=== PATIENT | female | born 1995 | race Caucasian/White ===

== ENCOUNTER 2017-06-21 11:11 | Emergency (ER) | payer OTHER ==
[2017-06-21 12:45] LABS: BASOPHIL % 0.6 % (0-2); PLATELET COUNT 240 x10^3mcL (130-400); RED CELL DISTRIBUTION WIDTH 12.6 % (11.5-14.5)
[2017-06-21 15:30] VITALS: BP 121/78
== END 2017-06-21 15:30 | disposition home or self-care (01) ==
LOC: ED 11:11
PROVIDERS: Emergency Medicine
DX: J02.9 Acute pharyngitis, unspecified (principal); R51 Headache; M79.1 Myalgia
CPT/HCPCS: J0561; J0696; J1100; J1885

== ENCOUNTER 2017-09-21 19:17 | Emergency (ER) | payer OTHER ==
[2017-09-21 21:09] LABS: microscopic required? NO
[2017-09-21 21:28] LABS: urine erythrocyte NEGATIVE (NEGATIVE)
[2017-09-22 01:30] VITALS: BP 115/73
== END 2017-09-22 01:30 | disposition home or self-care (01) ==
LOC: ED 19:17
PROVIDERS: Emergency Medicine Emergency Medical Services
DX: N83.201 Unspecified ovarian cyst, right side (principal)

== ENCOUNTER 2018-11-21 19:19 | Emergency (ER) | payer OTHER ==
[~2018-11-21] VITALS: Ht 157.5 cm; Wt 57.6 kg
[2018-11-21 20:07] VITALS: Ht 157.5 cm; Wt 57.6 kg
[2018-11-21 21:48] LABS: microscopic required? NO
[2018-11-21 22:05] LABS: urine erythrocyte NEGATIVE (NEGATIVE)
[2018-11-21 22:39] LABS: BASOPHIL % 0.5 % (0-2); PLATELET COUNT 268 x10^3mcL (130-400); RED CELL DISTRIBUTION WIDTH 12.6 % (11.5-14.5)
[2018-11-21 22:54] LABS: CALCIUM 8.5 mg/dL (8.5-10.1); CARBON DIOXIDE 29.4 mmol/L (21-32); CHLORIDE SERUM 102 mmol/L (98-107); CREATININE SERUM 0.6 mg/dL (0.6-1.0); GFR1 > 60 mL/min; GLUCOSE SERUM 81 mg/dL (74-106); POTASSIUM SERUM 3.4 mmol/L (3.5-5.1); SODIUM SERUM 136 mmol/L (136-145)
[2018-11-21 22:59] LABS: ALBUMIN 3.5 g/dL (3.4-5.0); ALKALINE PHOSPHATASE 53 U/L (46-116); ALT/SGPT 18 U/L (14-59); AMYLASE 49 U/L (25-115); AST/SGOT 15 U/L (15-37); BILIRUBIN TOTAL 0.21 mg/dL (0.20-1.00); LIPASE 93 IU/L (73-393); TOTAL PROTEIN, SERUM 7.5 g/dL (6.4-8.2)
[2018-11-21 23:32] VITALS: BP 114/73
== END 2018-11-21 23:32 | disposition home or self-care (01) ==
LOC: ED 19:19
PROVIDERS: Emergency Medicine
DX: N83.9 Noninflammatory disorder of ovary, fallopian tube and broad ligament, unspecified (principal); F17.210 Nicotine dependence, cigarettes, uncomplicated
CPT/HCPCS: 36415; 99406

== ENCOUNTER 2018-12-28 15:18 | Emergency (ER) | payer OTHER ==
[~2018-12-28] VITALS: Ht 154.9 cm; Wt 56.2 kg
[2018-12-28 15:27] VITALS: Ht 154.9 cm; Wt 56.2 kg
[2018-12-28 20:23] VITALS: BP 124/83
== END 2018-12-28 20:23 | disposition home or self-care (01) ==
LOC: ED 15:18
DX: S13.4XXA Sprain of ligaments of cervical spine, initial encounter (principal); S06.0X9A Concussion with loss of consciousness of unspecified duration, initial encounter; V49.49XA Driver injured in collision with other motor vehicles in traffic accident, initial encounter; Y93.I9 Activity, other involving external motion; Y92.413 State road as the place of occurrence of the external cause; Y99.8 Other external cause status

== ENCOUNTER 2019-05-13 12:43 | Emergency (ER) | payer OTHER ==
[~2019-05-13] VITALS: Ht 157.5 cm; Wt 53.5 kg
[2019-05-13 12:58] VITALS: Ht 157.5 cm; Wt 53.5 kg
[2019-05-13 15:19] VITALS: BP 125/66
== END 2019-05-13 15:29 | disposition home or self-care (01) ==
LOC: ED 12:43
DX: R10.2 Pelvic and perineal pain (principal); Z87.42 Personal history of other diseases of the female genital tract
CPT/HCPCS: J1885

== ENCOUNTER 2019-08-25 17:20 | Emergency (ER) | payer OTHER ==
[~2019-08-25] VITALS: Ht 157.5 cm; Wt 54.0 kg
[2019-08-25 17:32] VITALS: Ht 157.5 cm; Wt 54.0 kg
[2019-08-25 19:25] VITALS: BP 124/85
== END 2019-08-25 19:25 | disposition home or self-care (01) ==
LOC: ED 17:20
DX: Z32.02 Encounter for pregnancy test, result negative (principal); Z87.42 Personal history of other diseases of the female genital tract
CPT/HCPCS: 36415

== ENCOUNTER 2019-09-07 07:21 | Emergency (ER) | payer OTHER ==
[~2019-09-07] VITALS: Ht 154.9 cm; Wt 54.4 kg
[2019-09-07 07:28] VITALS: Ht 154.9 cm; Wt 54.4 kg
[2019-09-07 07:59] LABS: BASOPHIL % 0.4 % (0-2); PLATELET COUNT 276 x10^3mcL (130-400)
[2019-09-07 08:04] LABS: CALCIUM 8.1 mg/dL (8.5-10.1); CARBON DIOXIDE 27.1 mmol/L (21-32); CHLORIDE SERUM 106 mmol/L (98-107); CREATININE SERUM 0.7 mg/dL (0.6-1.0); GFR1 > 60 mL/min; GLUCOSE SERUM 99 mg/dL (74-106); POTASSIUM SERUM 3.7 mmol/L (3.5-5.1); SODIUM SERUM 140 mmol/L (136-145)
[2019-09-07 08:12] LABS: ALKALINE PHOSPHATASE 48 U/L (46-116); ALT/SGPT 18 U/L (14-59); AST/SGOT 23 U/L (15-37); BILIRUBIN TOTAL 0.18 mg/dL (0.20-1.00); LIPASE 121 IU/L (73-393); TOTAL PROTEIN, SERUM 6.7 g/dL (6.4-8.2)
[2019-09-07 08:13] LABS: ALBUMIN 3.3 g/dL (3.4-5.0)
[2019-09-07 10:01] VITALS: BP 110/65
== END 2019-09-07 10:01 | disposition home or self-care (01) ==
LOC: ED 07:21
PROVIDERS: Emergency Medicine
DX: K29.70 Gastritis, unspecified, without bleeding (principal)
CPT/HCPCS: J2270; J2405; J7030; Q0092

== ENCOUNTER 2020-01-05 16:29 | Emergency (ER) | payer OTHER ==
[~2020-01-05] VITALS: Ht 157.5 cm; Wt 54.0 kg
[2020-01-05 16:41] VITALS: BP 118/56; Ht 157.5 cm; Wt 54.0 kg
== END 2020-01-05 17:12 | disposition home or self-care (01) ==
LOC: ED 16:29
DX: S05.02XA Injury of conjunctiva and corneal abrasion without foreign body, left eye, initial encounter (principal); H10.9 Unspecified conjunctivitis; X58.XXXA Exposure to other specified factors, initial encounter; Y93.89 Activity, other specified; Y92.89 Other specified places as the place of occurrence of the external cause; Y99.8 Other external cause status